=== PATIENT | male | born 1980 | race Caucasian/White ===

== ENCOUNTER → 2016-11-18 | Outpatient (CLI) | payer OTHER ==
[~2016-11-18] MED LIST: CATAPRES 0.1MG0.1 MG PO; CETIRIZINE HCL10 MG PO; COLACE 100MG C100 MG PO; ELAVIL 25 MG TA25 MG PO; LEVOTHYROXINE25 MCG PO; LISINOPRIL-HCT1 EAC2 PO; MAXIPIME 2 GM VI2 GM IV; MIRTAZAPINE7.5 MG PO; MORPHINE SULFAT30 M4 PO; NEURONTIN 400400 MG PO; NICOTINE PATCH1 EAC4 TOP; OXYCODONE HCL10 MG PO; PHENERGAN 25 MG25 M1 PO; PROPRANOLOL HCL10 MG PO; REMERON 15 MG T15 MG PO; SENNA CONCENTR8.6 MG PO; XANAX0.5 MG PO; ZOFRAN8 MG PO
== END ==
LOC: RAD 15:13
DX: M54.9 Dorsalgia, unspecified (principal); M54.2 Cervicalgia; M47.814 Spondylosis without myelopathy or radiculopathy, thoracic region; M47.816 Spondylosis without myelopathy or radiculopathy, lumbar region; M51.26 Other intervertebral disc displacement, lumbar region
CPT/HCPCS: 72050; 72072; 72110

== ENCOUNTER → 2016-11-25 | Outpatient (CLI) | payer OTHER | LOC: CT 08:30 | DX: C62.92 Malignant neoplasm of left testis, unspecified whether descended or undescended (principal); J98.59 Other diseases of mediastinum, not elsewhere classified | CPT/HCPCS: 71260; 94060; 94729; J7050; Q9962 ==

== ENCOUNTER → 2016-11-29 | Outpatient (CLI) | payer OTHER | LOC: OPSV 11-28 09:30 | DX: C62.92 Malignant neoplasm of left testis, unspecified whether descended or undescended (principal) ==

== ENCOUNTER → 2016-11-30 | Outpatient (CLI) | payer OTHER | LOC: OPSV 08:48 | DX: Z45.2 Encounter for adjustment and management of vascular access device (principal) | CPT/HCPCS: G0463 ==

== ENCOUNTER → 2016-12-25 | Outpatient (CLI) | payer OTHER | LOC: KOH-I 14:00 | DX: C62.12 Malignant neoplasm of descended left testis (principal); C79.82 Secondary malignant neoplasm of genital organs | CPT/HCPCS: 76856 ==

== ENCOUNTER → 2016-12-26 | Outpatient (CLI) | payer OTHER | LOC: KOH-I 10:30 | DX: C62.12 Malignant neoplasm of descended left testis (principal); C79.82 Secondary malignant neoplasm of genital organs; N32.9 Bladder disorder, unspecified | CPT/HCPCS: 76700 ==

== ENCOUNTER → 2017-01-24 | Outpatient (CLI) | payer OTHER ==
[2017-01-24 15:55] LABS: HEMOGLOBIN 8.2 gm/dl (14.0-17.5); RED BLOOD COUNT 3.06 M/UL (4.20-5.50); WHITE BLOOD COUNT 19.9 K/UL (4.5-11.0)
[2017-01-24 16:00] LABS: BUN/CREATININE RATIO 12 (0-10)
== END ==
LOC: LAB 14:49
PROVIDERS: Physician Assistant Medical
DX: D69.6 Thrombocytopenia, unspecified (principal)
CPT/HCPCS: 36592; 80053; 85025

== ENCOUNTER 2017-02-11 17:49 | Inpatient (IN) | payer OTHER ==
[~2017-02-11] VITALS: Ht 188 cm; Wt 112.7 kg
[2017-02-11 20:50] LABS: BUN/CREATININE RATIO 12 (0-10)
[2017-02-11 20:55] LABS: HEMOGLOBIN 7.3 gm/dl (14.0-17.5); RED BLOOD COUNT 2.62 M/UL (4.20-5.50); WHITE BLOOD COUNT 3.5 K/UL (4.5-11.0)
[2017-02-12] MEDS ORDERED: OXYCODONE HCL10 MG PO (02:23)
[2017-02-12] MEDS ORDERED: MORPHINE SULFAT30 M4 PO (02:24)
[2017-02-12] MEDS ORDERED: CATAPRES 0.1MG0.1 MG PO (02:25)
[2017-02-12] MEDS ORDERED: NICOTINE PATCH1 EAC4 TOP (02:25)
[2017-02-12] MEDS ORDERED: CETIRIZINE HCL10 MG PO (02:26)
[2017-02-12] MEDS ORDERED: ZOFRAN8 MG PO (02:26)
[2017-02-12] MEDS ORDERED: NEURONTIN 400400 MG PO (02:27)
[2017-02-12] MEDS ORDERED: PHENERGAN 25 MG25 M1 PO (02:27)
[2017-02-12] MEDS ORDERED: LEVOTHYROXINE25 MCG PO (02:28)
[2017-02-12] MEDS ORDERED: COLACE 100MG C100 MG PO (02:30)
[2017-02-12] MEDS ORDERED: LISINOPRIL-HCT1 EAC2 PO (02:30)
[2017-02-12] MEDS ORDERED: XANAX0.5 MG PO (02:30)
[2017-02-12] MEDS ORDERED: SENNA CONCENTR8.6 MG PO (02:31)
[2017-02-12 05:41] LABS: RED BLOOD COUNT 2.47 M/UL (4.20-5.50)
[2017-02-12 05:47] LABS: WHITE BLOOD COUNT 5.8 K/UL (4.5-11.0)
[2017-02-12 11:20] LABS: BORDETELLA PERTUSSIS Not Detected (Negative); CHLAMYDOPHLA PNEUMONIAE Not Detected (Negative); CORONAVIRUS HKU1 Not Detected (Negative); CORONAVIRUS NL63 Not Detected (Negative); CORONAVIRUS OC43 Not Detected (Negative); CORONOAVIRUS 229E Not Detected (Negative); HUMAN METAPNEUMOVIRUS Not Detected (Negative); HUMAN RHINOVIRUS/ENTEROVIRUS Not Detected (Negative); INFLUENZA A Not Detected (Negative); INFLUENZA A H-1-2009 Not Detected (Negative); INFLUENZA A H1 Not Detected (Negative); INFLUENZA A H3 Not Detected (Negative); INFLUENZA B Not Detected (Negative); MYCOPLASMA PNEUMONIAE Not Detected (Negative); PARAINFLUENZA VIRUS 1 Not Detected (Negative); PARAINFLUENZA VIRUS 2 Not Detected (Negative); PARAINFLUENZA VIRUS 3 Not Detected (Negative); PARAINFLUENZA VIRUS 4 Not Detected (Negative); RESPIRATORY SYNCYTIAL VIRUS Not Detected (Negative)
[2017-02-13 06:08] LABS: RED BLOOD COUNT 2.44 M/UL (4.20-5.50)
[2017-02-13 06:14] LABS: BUN/CREATININE RATIO 12 (0-10)
[2017-02-13 06:16] LABS: HEMOGLOBIN 6.8 gm/dl (14.0-17.5)
[2017-02-14 06:24] LABS: HEMOGLOBIN 10.3 gm/dl (14.0-17.5); RED BLOOD COUNT 3.45 M/UL (4.20-5.50); WHITE BLOOD COUNT 13.4 K/UL (4.5-11.0)
[2017-02-14 06:46] LABS: BUN/CREATININE RATIO 10 (0-10)
[2017-02-15 06:50] LABS: BUN/CREATININE RATIO 12 (0-10)
[2017-02-15 07:14] LABS: HEMOGLOBIN 13.4 gm/dl (14.0-17.5); RED BLOOD COUNT 4.7 M/UL (4.20-5.50)
[2017-02-16 07:08] LABS: BUN/CREATININE RATIO 11 (0-10)
[2017-02-16 07:54] LABS: RED BLOOD COUNT 3.12 M/UL (4.20-5.50); WHITE BLOOD COUNT 15.6 K/UL (4.5-11.0)
[2017-02-16 07:55] LABS: HEMOGLOBIN 9.1 gm/dl (14.0-17.5)
[2017-02-17 05:52] LABS: HEMOGLOBIN 8.7 gm/dl (14.0-17.5); WHITE BLOOD COUNT 14.1 K/UL (4.5-11.0)
[2017-02-18] MEDS ORDERED: MAXIPIME 2 GM VI2 GM IV (13:23)
[2017-03-21] MEDS ORDERED: ELAVIL 25 MG TA25 MG PO (02:23)
[2017-03-21] MEDS ORDERED: PROPRANOLOL HCL10 MG PO (02:23)
[2017-03-21] MEDS ORDERED: MIRTAZAPINE7.5 MG PO (02:27)
[2017-03-21] MEDS ORDERED: REMERON 15 MG T15 MG PO (02:45)
== END 2017-02-18 15:46 | disposition home health service (06) | DRG 314 ==
LOC: ER1 17:49 → ZEROF 02-12 00:43 → M/S 02-12 00:43
PROVIDERS: Emergency Medicine; Physician Assistant; ADMIT Internal Medicine
PROC: 30233H1 Transfusion of Nonautologous Whole Blood into Peripheral Vein, Percutaneous Approach (ICD-10-PCS; 2017-02-12)
PROC: 30233R1 Transfusion of Nonautologous Platelets into Peripheral Vein, Percutaneous Approach (ICD-10-PCS; 2017-02-12)
PROC: 02HV33Z Insertion of Infusion Device into Superior Vena Cava, Percutaneous Approach (ICD-10-PCS; principal; 2017-02-17)
PROC: 05PY33Z Removal of Infusion Device from Upper Vein, Percutaneous Approach (ICD-10-PCS; 2017-02-17)
DX: T82.7XXA Infection and inflammatory reaction due to other cardiac and vascular devices, implants and grafts, initial encounter (principal); A41.9 Sepsis, unspecified organism; D61.818 Other pancytopenia; C62.90 Malignant neoplasm of unspecified testis, unspecified whether descended or undescended; F41.9 Anxiety disorder, unspecified; I10 Essential (primary) hypertension; E03.9 Hypothyroidism, unspecified; F17.210 Nicotine dependence, cigarettes, uncomplicated; Y84.8 Other medical procedures as the cause of abnormal reaction of the patient, or of later complication, without mention of misadventure at the time of the procedure; B96.5 Pseudomonas (aeruginosa) (mallei) (pseudomallei) as the cause of diseases classified elsewhere; D64.81 Anemia due to antineoplastic chemotherapy; T45.1X5A Adverse effect of antineoplastic and immunosuppressive drugs, initial encounter; D69.59 Other secondary thrombocytopenia; Z79.891 Long term (current) use of opiate analgesic; Z88.0 Allergy status to penicillin; Z88.2 Allergy status to sulfonamides; Z88.8 Allergy status to other drugs, medicaments and biological substances
CPT/HCPCS: ECHO; 36415; 36430; 71020; 80048; 80053; 80202; 81001; 83605; 83690; 85025; 85027; 86850; 86900; 86901; 86920; 87040; 87070; 87077; 87086; 87186; 87205; 87486; 87581; 87633; 87798; 93005; 93306; 96361; 96365; 96375; 99284; G0378; J0692; J3370; J7030; J7050; J7070; P9016; P9035